=== PATIENT | female | born 1965 | race Caucasian/White ===

== ENCOUNTER 2021-05-06 13:41 | Emergency (ER) | payer OTHER | END 2021-05-06 18:27 | disposition home or self-care (01) | LOC: FER 13:41 | DX: J06.9 Acute upper respiratory infection, unspecified (principal); R91.8 Other nonspecific abnormal finding of lung field; Z88.5 Allergy status to narcotic agent; Z20.822 Contact with and (suspected) exposure to COVID-19 | CPT/HCPCS: 70450; 71045; 93005; J1040; U0002 ==